=== PATIENT | female | born 1970 | race Asian ===

== ENCOUNTER 2016-07-14 09:42 | Emergency (ER) | payer OTHER ==
[~2016-07-14] VITALS: Ht 167.6 cm; Wt 77.3 kg
[2016-07-14 09:54] VITALS: BP 140/87; PULSE 79; TEMP 98.9
[2016-07-14 10:37] LABS: PH 5 (5-8); SQUAMOUS EPITHELIAL 20-50 /hpf; URINE APPEARANCE Hazy; URINE BACTERIA Rare /hpf; URINE BILIRUBIN Negative (NEGATIVE); URINE BLOOD 2+ (NEGATIVE); URINE COLOR Yellow; URINE GLUCOSE Negative (NEGATIVE); URINE KETONE Negative (NEGATIVE); URINE UROBILINOGEN Negative (NEGATIVE); URINE WBC >50 /hpf
[2016-07-14] MEDS ORDERED: ENBREL50 MG/ML SC (10:41)
[2016-07-14] MEDS ORDERED: FLEXERIL 1010 MG/TAB PO (11:02)
[2016-07-14] MEDS ORDERED: NORCO 325 MG-51 TAB PO (11:02)
[2016-07-14] MEDS ORDERED: MACROBID 1100 MG/CAP PO (11:02)
== END 2016-07-14 11:10 | disposition home or self-care (01) ==
LOC: COL.ER 09:42
PROVIDERS: Nurse Practitioner
DX: M54.41 Lumbago with sciatica, right side (principal); N39.0 Urinary tract infection, site not specified

== ENCOUNTER 2018-10-08 02:17 | Emergency (ER) | payer OTHER ==
[~2018-10-08] VITALS: Ht 167.6 cm; Wt 72.7 kg
[~2018-10-08 02:17] MED LIST: ENBREL50 MG/ML SC; FLEXERIL 1010 MG/TAB PO; MACROBID 1100 MG/CAP PO; NORCO 325 MG-51 TAB PO
[2018-10-08 02:20] VITALS: TEMP 97.2
[2018-10-08 02:42] LABS: BASO # 0.1 (0.0-0.2); BASO % 0.5 % (0.0-2.0); EOS # 0.2 (0.0-0.7); EOS % 1.6 % (0-4.0); GRAN # 8.1 (1.4-6.5); GRAN % 56.8 % (42.2-75.2); HEMOGLOBIN 13.4 g/dl (12.5-16.0); LYMPH # 4.9 (1.2-3.4); LYMPH % 34.3 % (20.0-51.0); MEAN CELL VOLUME 92 fl (80.0-100.0); MEAN CORPUSCULAR HEMOGLOBIN 31 pg (27.0-31.0); MEAN CORPUSCULAR HGB CONC 34 g/dl (33.0-37.0); MEAN PLATELET VOLUME 10.9 fl (7.4-10.4); MONO # 0.9 (0.1-0.6); MONO % 6.3 % (1.7-9.3); PLATELET COUNT 228 K/mm3 (130-400); RED BLOOD COUNT 4.36 M/mm3 (4.10-5.30); REDCELL DISTRIBUTION WIDTH-CV 12.8 % (11.5-14.5)
[2018-10-08 02:51] LABS: ALBUMIN 3.8 gm/dL (3.5-5.0); BILIRUBIN,TOTAL 0.5 mg/dL (0.0-1.0); CREATININE, serum 0.73 (0.52-1.25); POTASSIUM 3.8 mmol/L (3.4-5.0); TOTAL PROTEIN 7.3 gm/dL (6.4-8.2)
[2018-10-08 04:09] LABS: COLLECTION METHOD CLEAN CATCH
[2018-10-08 04:15] LABS: MUCOUS Present /lpf; PH 6 (5-8); SQUAMOUS EPITHELIAL 0-2 /hpf; URINE APPEARANCE Clear; URINE BACTERIA None Seen /hpf; URINE BILIRUBIN Negative (NEGATIVE); URINE BLOOD 3+ (NEGATIVE); URINE COLOR Yellow; URINE GLUCOSE Negative (NEGATIVE); URINE KETONE Negative (NEGATIVE); URINE LEUKOCYTE ESTERASE Negative (NEGATIVE); URINE NITRATE Negative (NEGATIVE); URINE PROTEIN(semi-quant) Negative (NEGATIVE); URINE RBC 20-50 /hpf; URINE UROBILINOGEN Negative (NEGATIVE)
[2018-10-08] MEDS ORDERED: CEPHALEXIN500 M1 PO (06:46)
[2018-10-08 06:55] VITALS: BP 127/84; PULSE 69
== END 2018-10-08 07:07 | disposition home or self-care (01) ==
LOC: COL.ER 02:17
PROVIDERS: Emergency Medicine
DX: R10.9 Unspecified abdominal pain (principal); Z87.442 Personal history of urinary calculi; Z87.891 Personal history of nicotine dependence
CPT/HCPCS: J2270; J2405; J7030; Q9967

== ENCOUNTER 2018-11-16 21:42 | Observation (INO) | payer OTHER ==
[~2018-11-16] VITALS: Ht 167.6 cm; Wt 71.3 kg
[~2018-11-16 21:42] MED LIST changes: +CEPHALEXIN500 M1 PO
[2018-11-16 22:42] LABS: BASO # 0.1 (0.0-0.2); BASO % 0.4 % (0.0-2.0); EOS % 0.1 % (0-4.0); GRAN % 84.5 % (42.2-75.2); HEMATOCRIT 43.1 % (37.0-47.0); HEMOGLOBIN 14.4 g/dl (12.5-16.0); LYMPH # 1.4 (1.2-3.4); LYMPH % 9.8 % (20.0-51.0); MEAN CELL VOLUME 92 fl (80.0-100.0); MEAN CORPUSCULAR HEMOGLOBIN 31 pg (27.0-31.0); MEAN CORPUSCULAR HGB CONC 33 g/dl (33.0-37.0); MONO # 0.7 (0.1-0.6); MONO % 4.8 % (1.7-9.3); PLATELET COUNT 235 K/mm3 (130-400); RED BLOOD COUNT 4.67 M/mm3 (4.10-5.30); REDCELL DISTRIBUTION WIDTH-CV 12.9 % (11.5-14.5)
[2018-11-16 22:56] LABS: ALBUMIN 4.4 gm/dL (3.5-5.0); BILIRUBIN,TOTAL 0.9 mg/dL (0.0-1.0); C-REACTIVE PROTEIN 1.2 mg/dL (0.0-0.9); CALCIUM 9.2 mg/dL (8.4-10.2); CREATININE, serum 0.7 (0.52-1.25); POTASSIUM 3.9 mmol/L (3.4-5.0); TOTAL PROTEIN 7.9 gm/dL (6.4-8.2)
[2018-11-16 23:08] LABS: COLLECTION METHOD CLEAN CATCH
[2018-11-16 23:24] LABS: MUCOUS Present /lpf; PH 7 (5-8); SQUAMOUS EPITHELIAL 0-2 /hpf; URINE APPEARANCE Cloudy; URINE BACTERIA None Seen /hpf; URINE BILIRUBIN Negative (NEGATIVE); URINE BLOOD 3+ (NEGATIVE); URINE COLOR Amber; URINE GLUCOSE Negative (NEGATIVE); URINE KETONE 1+ (NEGATIVE); URINE LEUKOCYTE ESTERASE 1+ (NEGATIVE); URINE NITRATE Negative (NEGATIVE); URINE PROTEIN(semi-quant) 2+ (NEGATIVE); URINE RBC >50 /hpf; URINE UROBILINOGEN Negative (NEGATIVE)
[2018-11-17 00:39] VITALS: BP 100/54; PULSE 73; TEMP 98.3
[2018-11-17 00:40] VITALS: BP 100/54; PULSE 73; TEMP 98.5
--- NOTE | 2018-11-17 00:45 | NUR ---
Patient arrived from ER, daughter at bedside. Patient denies pain, denies nausea. Admission assessment partially complete per pt request. Patient states she would like to rest. Denies further needs at this time. Will continue to monitor.
[2018-11-17 04:23] VITALS: BP 113/57; PULSE 70; TEMP 98.5
[2018-11-17] MEDS ORDERED: ENBREL50 MG/ML SQ (06:55)
--- NOTE | 2018-11-17 07:10 | NUR ---
Received report from MILY Delatorre.
[2018-11-17 07:30] VITALS: BP 120/67; PULSE 72; TEMP 98.4
--- NOTE | 2018-11-17 08:18 | NUR ---
Pt resting in bed, awake and alert upon entry, pain managable at this time, shift assessments complete, left Pt call light in reach, bed in lowest position.
--- NOTE | 2018-11-17 10:32 | NUR ---
Initial visit; Patient thanked Chaplian for looking in on her and offering encouragement, comfort and God's blessings.
[2018-11-17 12:37] VITALS: BP 90/51; PULSE 72; TEMP 98
--- NOTE | 2018-11-17 16:12 | NUR ---
SW met with patient to discuss discharge planning. Patient lives independently at home with her children. Patient reports she is but her is and is [place] of [place]. Patient's PCP is Dr Arriaza on [facility] and she obtains medications from [facility]. Patient is independent with all ADLs and does not use any DME or home health services. Patient reports she does have advanced directives completed. SW does not anticipate any discharge needs.
[2018-11-17 16:41] VITALS: BP 107/53; PULSE 74; TEMP 98.5
[2018-11-17] MEDS ORDERED: ZOFRAN8 MG PO (18:34)
[2018-11-17] MEDS ORDERED: FLOMAX 0.40.4 MG/CAP PO (18:35)
--- NOTE | 2018-11-17 19:40 | NUR ---
Pt discharged to home, escorted to entrance, left with family via private auto.
[2018-11-18] MEDS ORDERED: NORCO 325 MG-51 TAB PO (16:58)
[2018-11-18] MEDS ORDERED: ZOFRAN ODT4 MG PO (16:59)
== END 2018-11-17 19:41 | disposition home or self-care (01) ==
LOC: COL.ER 21:42 → MEDICAL 22:36
PROVIDERS: Emergency Medicine; ADMIT Urology
DX: R10.9 Unspecified abdominal pain (principal); Z87.891 Personal history of nicotine dependence
CPT/HCPCS: G0378; J0696; J1885; J2405; J3010; J7030

== ENCOUNTER 2018-11-18 13:02 | Inpatient (IN) | payer OTHER ==
[~2018-11-18] VITALS: Ht 167.6 cm; Wt 82.3 kg
[~2018-11-18 13:02] MED LIST changes: +ENBREL50 MG/ML SQ; +FLOMAX 0.40.4 MG/CAP PO; +ZOFRAN8 MG PO
[2018-11-18 15:32] LABS: BASO % 0.3 % (0.0-2.0); EOS % 0.1 % (0-4.0); GRAN # 13.4 (1.4-6.5); GRAN % 88.1 % (42.2-75.2); HEMATOCRIT 37.8 % (37.0-47.0); HEMOGLOBIN 12.7 g/dl (12.5-16.0); LYMPH # 1.1 (1.2-3.4); LYMPH % 7.4 % (20.0-51.0); MEAN CELL VOLUME 92 fl (80.0-100.0); MEAN CORPUSCULAR HEMOGLOBIN 31 pg (27.0-31.0); MEAN CORPUSCULAR HGB CONC 34 g/dl (33.0-37.0); MEAN PLATELET VOLUME 11.2 fl (7.4-10.4); MONO # 0.6 (0.1-0.6); MONO % 3.8 % (1.7-9.3); PLATELET COUNT 203 K/mm3 (130-400); RED BLOOD COUNT 4.09 M/mm3 (4.10-5.30); REDCELL DISTRIBUTION WIDTH-CV 12.9 % (11.5-14.5)
[2018-11-18 15:40] LABS: ALBUMIN 4.1 gm/dL (3.5-5.0); BILIRUBIN,TOTAL 0.8 mg/dL (0.0-1.0); CALCIUM 8.9 mg/dL (8.4-10.2); CREATININE, serum 0.92 (0.52-1.25); POTASSIUM 3.4 mmol/L (3.4-5.0); TOTAL PROTEIN 7.4 gm/dL (6.4-8.2)
[2018-11-18 16:12] LABS: COLLECTION METHOD CLEAN CATCH
[2018-11-18 16:23] LABS: MUCOUS Present /lpf; PH 6 (5-8); SQUAMOUS EPITHELIAL None Seen /hpf; URINE APPEARANCE Cloudy; URINE BACTERIA None Seen /hpf; URINE BILIRUBIN Negative (NEGATIVE); URINE BLOOD 3+ (NEGATIVE); URINE COLOR Red; URINE GLUCOSE Negative (NEGATIVE); URINE KETONE 1+ (NEGATIVE); URINE LEUKOCYTE ESTERASE Trace (NEGATIVE); URINE NITRATE Negative (NEGATIVE); URINE PROTEIN(semi-quant) 2+ (NEGATIVE); URINE RBC >50 /hpf; URINE UROBILINOGEN Negative (NEGATIVE); URINE WBC >50 /hpf
[2018-11-18] MEDS ORDERED: NORCO 325 MG-51 TAB PO (16:58)
[2018-11-18] MEDS ORDERED: ZOFRAN ODT4 MG PO (16:59)
[2018-11-18 18:19] VITALS: BP 138/75; PULSE 70; TEMP 98.5
[2018-11-18 18:23] VITALS: BP 138/75; PULSE 70; TEMP 98.5
[2018-11-18 20:00] VITALS: BP 134/66; PULSE 80
[2018-11-18 20:41] VITALS: BP 134/66; PULSE 80; TEMP 98.7
[2018-11-18 22:59] VITALS: BP 112/50; PULSE 64; TEMP 98.4
[2018-11-18 23:36] VITALS: BP 112/50; PULSE 64
[2018-11-19] VITALS (12 sets, daily range): BP systolic 102–130; BP diastolic 48–68; PULSE 65–82; TEMP 98.3–98.7
--- NOTE | 2018-11-19 01:09 | NUR ---
Patient requested pain medication upon arrival to shift. PRN Dilaudid given. Upon reassessment, patient stated it did not help and was noted to be shaking d/t pain. IV to right hand infiltrated, and new IV start to right forearm completed. Dr. Zhu updated on patient's pain status and ordered Morphine METAL FURNITURE REPAIRER Level 1 and 15mg IV Toradol q6 hours PRN. Patient set up with morphine METAL FURNITURE REPAIRER. Noted to be effective in pain control. Toradol given as well. Patient resting in bed and was finishing up some work on her computer. Will continue to monitor.
--- NOTE | 2018-11-19 08:35 | NUR ---
Received patient from PACU. Denies pain or nausea. VSS. Voiding red tinged yellow urine. Daughter at bedside.
--- NOTE | 2018-11-19 12:00 | NUR ---
Voiding without difficulty. Denies pain. VSS. Dismissed to home with daughter.
== END 2018-11-19 12:00 | disposition home or self-care (01) | DRG 660 ==
LOC: COL.ER 13:02 → SURG 16:49
PROVIDERS: Emergency Medicine; ADMIT Urology
PROC: 0T778DZ Dilation of Left Ureter with Intraluminal Device, Via Natural or Artificial Opening Endoscopic (ICD-10-PCS; principal; 2018-11-19 07:00)
PROC: 0TC78ZZ Extirpation of Matter from Left Ureter, Via Natural or Artificial Opening Endoscopic (ICD-10-PCS; 2018-11-19 07:00)
DX: N20.1 Calculus of ureter (principal); N39.0 Urinary tract infection, site not specified; L40.9 Psoriasis, unspecified; Z87.442 Personal history of urinary calculi; Z87.891 Personal history of nicotine dependence; Z72.89 Other problems related to lifestyle; Z79.891 Long term (current) use of opiate analgesic
CPT/HCPCS: OP; A4216; C1769; C2617; J0690; J0696; J1100; J1170; J1885; J2270; J2405; J2704; J7030; Q9967

== ENCOUNTER 2022-06-25 13:05 | Emergency (ER) | payer OTHER ==
[~2022-06-25] VITALS: Ht 165.1 cm; Wt 75.9 kg
[~2022-06-25 13:05] MED LIST changes: +ZOFRAN ODT4 MG PO
[2022-06-25 13:11] VITALS: TEMP 98.4
[2022-06-25 14:22] LABS: COLLECTION METHOD CLEAN CATCH
[2022-06-25 14:28] LABS: PH 5.5 (5.0-8.5); URINE APPEARANCE Cloudy (CLEAR/HAZY); URINE COLOR Red (YELLOW); URINE GLUCOSE Negative (NEGATIVE); URINE KETONE Negative (NEGATIVE); URINE NITRATE Negative (NEGATIVE); URINE UROBILINOGEN 0.2 E.U/dL (0.2-1.0)
[2022-06-25 14:29] LABS: URINE BLOOD 3+ (NEGATIVE); URINE PROTEIN(semi-quant) 2+ (NEGATIVE)
[2022-06-25 14:30] LABS: SQUAMOUS EPITHELIAL 0-2 /hpf (0-10); URINE BACTERIA Rare /hpf (NONE SEEN); URINE RBC 0-2 /hpf (0-2)
[2022-06-25 15:58] LABS: BASO # 0.1 K/mm3 (0.0-0.2); BASO % 0.6 % (0.0-2.0); EOS # 0.2 K/mm3 (0.0-0.7); EOS % 1.4 % (0.0-4.0); GRAN # 7.3 K/mm3 (1.4-6.5); GRAN % 68.1 % (42.2-75.2); HEMATOCRIT 42.2 % (37.0-47.0); HEMOGLOBIN 14.3 g/dl (12.5-16.0); LYMPH # 2.6 K/mm3 (1.2-3.4); LYMPH % 23.9 % (20.0-51.0); MEAN CELL VOLUME 90 fl (80.0-100.0); MEAN CORPUSCULAR HEMOGLOBIN 31 pg (27-31); MEAN CORPUSCULAR HGB CONC 34 g/dl (33.0-37.0); MEAN PLATELET VOLUME 10.9 fl (7.4-10.4); MONO # 0.6 K/mm3 (0.1-0.6); MONO % 5.6 % (1.7-9.3); PLATELET COUNT 306 K/mm3 (130-400); RED BLOOD COUNT 4.69 M/mm3 (4.10-5.30); REDCELL DISTRIBUTION WIDTH-CV 13.1 % (11.5-14.5)
[2022-06-25 16:17] LABS: ALBUMIN 4.1 gm/dL (3.5-5.0); BILIRUBIN,TOTAL 0.5 mg/dL (0.2-1.2); C-REACTIVE PROTEIN 0.38 mg/dL (0.00-0.50); CALCIUM 9.6 mg/dL (8.4-10.2); CREATININE, serum 0.77 mg/dL (0.57-1.11); POTASSIUM 3.8 mmol/L (3.5-4.5); TOTAL PROTEIN 7.6 gm/dL (6.2-8.1)
[2022-06-25] MEDS ORDERED: PROVERA 10MG10 MG PO (16:50)
[2022-06-25 17:06] VITALS: BP 134/93; PULSE 92
== END 2022-06-25 17:07 | disposition home or self-care (01) ==
LOC: COL.ER 13:05
PROVIDERS: Nurse Practitioner
DX: N93.9 Abnormal uterine and vaginal bleeding, unspecified (principal); Z28.310 Unvaccinated for COVID-19